=== PATIENT | female | born 1985 | race Caucasian/White ===

== ENCOUNTER 2021-03-11 23:44 | Inpatient (IN) ==
[2021-03-12] MEDS ORDERED: BUTORPHANOL 1 MG/ML VIAL IV PRN (00:25)
[2021-03-12] MEDS ORDERED: OXYTOCIN/LR 20 UNIT/1,000 ML BAG IV PRN (00:25)
[2021-03-12] MEDS ORDERED: ONDANSETRON 4 MG/2 ML VIAL IV PRN ×2 (00:25→19:51)
[2021-03-12 00:57] LABS: Basophils # 0.1 10*3/uL (0.0-0.2); Basophils % 0.4 % (0.0-0.8); Eosinophils # 0.2 10*3/uL (0.0-0.87); Eosinophils % 1.3 % (0.00-10.9); Hematocrit 34.2 VOL% (35.7-47.0); Hemoglobin 11.4 GM/DL (12.0-16.0); Immature Granulocytes % 0.7 %; Immature Granulocytes Absolute 0.09 #; Lymphocytes # 2.5 10*3/uL (1.4-4.0); Lymphocytes % 18.9 % (21.3-54.2); Mean Corpuscular HGB Conc 33.3 GM/DL (32-36); Mean Corpuscular Volume 86.8 FL (87-102); Mean Platelet Volume 10.4 FL (9.6-12.0); Monocytes % 7.5 % (1.7-12.7); Neutrophils % 71.2 % (38.7-73.9); Platelet Count 230 T/CUMM (130-400); Red Blood Count 3.94 MC/CUMM (3.8-5.5); Red Cell Distribution Width 15.9 % (9.3-17.3)
[2021-03-12 01:15] LABS: Alanine Aminotransferase 15 U/L (13-56); Albumin 2.6 G/DL (3.4-5.0); Alkaline Phosphatase 163 U/L (45-117); Aspartate Amino Transferase 18 U/L (0-37); Bilirubin,Total < 0.39 MG/DL (0.2-1.0); Blood Urea Nitrogen 11 MG/DL (7-18); Calcium 8.4 MG/DL (8.5-10.1); Carbon Dioxide 22 MMOL/L (21-32); Estimated Glom Filtration Rate 90 ML/MIN; Glucose 87 MG/DL (74-106); Osmolality,Calculated 270.8 MOS/KG (273-304); Potassium 3.8 MMOL/L (3.5-5.1); Sodium 137 MMOL/L (136-145); Total Protein 6.7 G/DL (6.4-8.2)
[2021-03-12] MEDS: LACTATED RINGERS 1,000 ML IV SCH (09:40)
[2021-03-12] MEDS ORDERED: CITRIC ACID/SODIUM CITRATE 30 ML UDCUP PO ONE (17:18)
[2021-03-12] MEDS ORDERED: ceFAZolin 2,000 MG/50 ML DUPLEX IV ONE (17:18)
[2021-03-12] MEDS ORDERED: LACTATED RINGERS 1,000 ML IV SCH ×2 (17:30→20:00)
[2021-03-12] MEDS ORDERED: FAMOTIDINE 20 MG/2 ML VIAL IV ONE ×2 (17:32→18:17)
[2021-03-12] MEDS ORDERED: miSOPROStoL 200 MCG TABLET ONE (18:24)
[2021-03-12] MEDS ORDERED: TRANEXAMIC ACID 1,000 MG/10 ML VIAL ONE (18:24)
[2021-03-12] MEDS ORDERED: OXYTOCIN/LR 20 UNIT/1,000 ML BAG IV ONE ×2 (18:24→19:51)
[2021-03-12] MEDS ORDERED: METHYLERGONOVINE 0.2 MG/1 ML AMP ONE (18:25)
[2021-03-12] MEDS ORDERED: CARBOPROST TROMETHAMINE 250 MCG/ML AMP IM ONE (18:25)
[2021-03-12] MEDS ORDERED: propofoL 200 MG/20 ML VIAL IV ONE (18:48)
[2021-03-12] MEDS ORDERED: DEXAMETHASONE 4 MG/1 ML VIAL ONE ×2 (18:48→19:30)
[2021-03-12] MEDS ORDERED: SUCCINYLCHOLINE 200 MG/10 ML VIAL ONE (18:48)
[2021-03-12] MEDS ORDERED: SEVOFLURANE 1 UNIT/15 MINUTE INH ONE (18:48)
[2021-03-12] MEDS ORDERED: LIDOCAINE 2% 5 ML VIAL ONE (18:48)
[2021-03-12] MEDS ORDERED: ONDANSETRON 4 MG/2 ML VIAL ONE (18:48)
[2021-03-12] MEDS ORDERED: MIDAZOLAM 2 MG/2 ML VIAL ONE (18:48)
[2021-03-12] MEDS ORDERED: fentaNYL 100 MCG/2 ML VIAL ONE (18:49)
[2021-03-12] MEDS ORDERED: ACETAMINOPHEN INJ 1,000 MG/100 ML VIAL IV ONE (19:14)
[2021-03-12] MEDS ORDERED: KETOROLAC 30 MG/1 ML VIAL ONE (19:14)
[2021-03-12] MEDS ORDERED: ROCURONIUM 50 MG/5 ML VIAL IV ONE (19:27)
[2021-03-12] MEDS ORDERED: NEOSTIGMINE 10 MG/10 ML VIAL ONE (19:33)
[2021-03-12] MEDS ORDERED: GLYCOPYRROLATE 0.4 MG/2 ML VIAL ONE (19:33)
[2021-03-12] MEDS ORDERED: PHENYLEPHRINE 10 MG/1 ML VIAL IV ONE (19:38)
[2021-03-12 19:42] LABS: Cord Venous Blood HCO3 24.4 MMOL/L; Cord Venous Blood PCO2 51.3 MMHG; Cord Venous Blood PO2 33.5
[2021-03-12] MEDS ORDERED: SIMETHICONE CHEW 80 MG TABLET PO PRN (19:51)
[2021-03-12] MEDS ORDERED: ACETAMINOPHEN 325 MG TABLET PO PRN (19:51)
[2021-03-12] MEDS ORDERED: MAGNESIUM HYDROXIDE SUSP 30 ML UDCUP PO PRN (19:51)
[2021-03-12] MEDS ORDERED: IBUPROFEN 800 MG TABLET PO PRN (19:51)
[2021-03-12] MEDS ORDERED: RHO(D) IMMUNE GLOBULIN 300 MCG SYRINGE IM ONE (19:51)
[2021-03-12] MEDS: HYDROmorphone 2 MG/1 ML VIAL IV PRN ×2 (20:25→22:51)
[2021-03-12 23:27] LABS: Bilirubin,Urine Negative (Negative); Blood, Urine Negative (Negative); Glucose,Urine (UA) Negative (Negative); Ketones,Urine Negative (Negative); Mucus,Urine Occasional /LPF (Occasional); Nitrite,Urine Negative (Negative); Protein,Urine Negative; RBC,Urine <1 /HPF (0-4); Urine Appearance CLEAR (Clear); Urine Color Yellow (Yellow); Urine Specific Gravity 1.015 (1.001-1.035)
[2021-03-13] MEDS: KETOROLAC 30 MG/1 ML VIAL IV SCH ×3 (01:46→14:12)
[2021-03-13] MEDS: ACETAMINOPHEN 500 MG TABLET PO SCH ×3 (01:47→14:20)
[2021-03-13] MEDS: LACTATED RINGERS 1,000 ML IV SCH (03:42)
[2021-03-13 05:51] LABS: Basophils % 0.2 % (0.0-0.8); Hematocrit 28.6 VOL% (35.7-47.0); Immature Granulocytes % 0.7 %; Immature Granulocytes Absolute 0.13 #; Lymphocytes # 1.8 10*3/uL (1.4-4.0); Lymphocytes % 8.9 % (21.3-54.2); Mean Corpuscular HGB Conc 32.9 GM/DL (32-36); Mean Platelet Volume 10.5 FL (9.6-12.0); Monocytes % 6.1 % (1.7-12.7); Neutrophils % 84.1 % (38.7-73.9); Platelet Count 205 T/CUMM (130-400); Red Blood Count 3.25 MC/CUMM (3.8-5.5); Red Cell Distribution Width 15.7 % (9.3-17.3)
[2021-03-13 05:56] LABS: Hemoglobin 9.4 GM/DL (12.0-16.0); White Blood Count 19.8 T/CUMM (4-12)
[2021-03-13] MEDS: DOCUSATE SODIUM 100 MG CAPSULE PO SCH ×2 (08:34→20:31)
[2021-03-13] MEDS: MULTIVITAMIN (PRENATAL) TABLET PO SCH (08:34)
[2021-03-14] MEDS ORDERED: IBUPROFEN 800 MG TABLET PO PRN (05:00)
[2021-03-14] MEDS: MULTIVITAMIN (PRENATAL) TABLET PO SCH (08:19)
[2021-03-14] MEDS: DOCUSATE SODIUM 100 MG CAPSULE PO SCH (08:19)
[2021-03-14 10:50] VITALS: BP 126/61
== END 2021-03-14 12:05 | disposition home or self-care (01) | DRG 540 ==
LOC: N.LD 23:44 → N.OB 03-13 00:29
PROVIDERS: ADMIT Obstetrics & Gynecology; ATTEND Obstetrics & Gynecology
PROC: LDCSECT (ICD-10-PCS; 2021-03-12 17:50)